=== PATIENT | female | born 1970 | race Caucasian/White ===

== ENCOUNTER → 2021-02-17 | Emergency (ER) | payer OTHER ==
[~2021-02-17] VITALS: Ht 167.6 cm; Wt 60.3 kg
[~2021-02-17] MED LIST: CLONAZEPAM0.5 MG; PAXIL20 MG
== END | disposition home or self-care (01) ==
LOC: ER 19:59
DX: R10.2 Pelvic and perineal pain (principal)

== ENCOUNTER 2022-02-02 15:20 | Emergency (ER) | payer OTHER ==
[~2022-02-02] VITALS: Ht 167.6 cm; Wt 67.6 kg
[2022-02-02] MEDS ORDERED: LEXAPRO5 MG (15:47)
[2022-02-02] MEDS ORDERED: RISPERDAL1 MG (15:48)
== END 2022-02-02 19:01 | disposition home or self-care (01) ==
LOC: ER 15:20
DX: H81.10 Benign paroxysmal vertigo, unspecified ear (principal)

== ENCOUNTER 2023-01-27 09:23 | Emergency (ER) | payer OTHER ==
[~2023-01-27] VITALS: Ht 167.6 cm; Wt 67.6 kg
[~2023-01-27 09:23] MED LIST changes: +LEXAPRO5 MG; +RISPERDAL1 MG
[2023-01-27] MEDS ORDERED: ABILIFY20 MG (09:41)
[2023-01-27] MEDS ORDERED: BANOPHEN50 MG PO (09:42)
[2023-01-27] MEDS ORDERED: CYMBALTA60 MG PO (09:42)
[2023-01-27] MEDS ORDERED: RESTORIL30 M1 PO (09:42)
== END 2023-01-27 13:01 | disposition home or self-care (01) ==
LOC: ER 09:23
DX: R07.9 Chest pain, unspecified (principal); F41.8 Other specified anxiety disorders; F20.89 Other schizophrenia; F31.89 Other bipolar disorder

== ENCOUNTER 2023-04-28 09:24 | Emergency (ER) | payer OTHER ==
[~2023-04-28] VITALS: Ht 167.6 cm; Wt 67.6 kg
[~2023-04-28 09:24] MED LIST changes: +ABILIFY20 MG; +BANOPHEN50 MG PO; +CYMBALTA60 MG PO; +RESTORIL30 M1 PO
== END 2023-04-28 12:03 | disposition home or self-care (01) ==
LOC: ER 09:24
DX: M54.50 Low back pain, unspecified (principal); M25.511 Pain in right shoulder; M25.512 Pain in left shoulder

== ENCOUNTER 2023-09-28 09:09 | Emergency (ER) | payer OTHER ==
[~2023-09-28] VITALS: Ht 167.6 cm; Wt 67.6 kg
[2023-09-28] MEDS ORDERED: BANOPHEN50 MG PO (09:21)
== END 2023-09-28 10:58 | disposition home or self-care (01) ==
LOC: ER 09:10
DX: S16.1XXA Strain of muscle, fascia and tendon at neck level, initial encounter (principal); X58.XXXA Exposure to other specified factors, initial encounter; Y93.9 Activity, unspecified; Y92.9 Unspecified place or not applicable; Y99.9 Unspecified external cause status; F32.A Depression, unspecified

== ENCOUNTER 2023-10-19 07:04 | Emergency (ER) | payer OTHER ==
[~2023-10-19] VITALS: Ht 167.6 cm; Wt 63.5 kg
[2023-10-19] MEDS ORDERED: ORPHENADRINE CITRATE 30 MG/ML AMPUL IM ONE (09:15)
[2023-10-19] MEDS ORDERED: KETOROLAC TROMETHAMINE 60 MG VIAL IM ONE (09:15)
== END 2023-10-19 11:15 | disposition home or self-care (01) ==
LOC: ER 07:04
DX: M54.50 Low back pain, unspecified (principal); M51.36 Other intervertebral disc degeneration, lumbar region

== ENCOUNTER 2023-11-20 13:35 | Emergency (ER) | payer OTHER ==
[~2023-11-20] VITALS: Ht 167.6 cm; Wt 67.6 kg
[2023-11-20] MEDS ORDERED: ORPHENADRINE CITRATE 30 MG/ML AMPUL IM STA (16:30)
[2023-11-20] MEDS ORDERED: ADVIL DUAL ACT1 EACH PO (18:26)
== END 2023-11-20 18:36 | disposition home or self-care (01) ==
LOC: ER 13:35
DX: S90.02XA Contusion of left ankle, initial encounter (principal); S30.0XXA Contusion of lower back and pelvis, initial encounter; S70.02XA Contusion of left hip, initial encounter; S40.012A Contusion of left shoulder, initial encounter; W18.30XA Fall on same level, unspecified, initial encounter; Y93.9 Activity, unspecified; Y92.89 Other specified places as the place of occurrence of the external cause; Y99.9 Unspecified external cause status

== ENCOUNTER 2024-03-23 07:31 | Emergency (ER) | payer OTHER ==
[~2024-03-23] VITALS: Ht 167.6 cm; Wt 67.6 kg
[~2024-03-23 07:31] MED LIST changes: +ADVIL DUAL ACT1 EACH PO
[2024-03-23] MEDS ORDERED: AMOXICILLIN500 M1 PO (09:40)
== END 2024-03-23 09:53 | disposition home or self-care (01) ==
LOC: ER 07:32
DX: J32.9 Chronic sinusitis, unspecified (principal)

== ENCOUNTER 2024-04-05 07:55 | Emergency (ER) | payer OTHER ==
[~2024-04-05] VITALS: Ht 167.6 cm; Wt 67.6 kg
[~2024-04-05 07:55] MED LIST changes: +AMOXICILLIN500 M1 PO
[2024-04-05] MEDS ORDERED: TRAMADOL HCL 50 MG TABLET PO ONE (09:15)
== END 2024-04-05 09:57 | disposition home or self-care (01) ==
LOC: ER 07:56
DX: M25.512 Pain in left shoulder (principal); M50.322 Other cervical disc degeneration at C5-C6 level

== ENCOUNTER 2024-06-13 09:13 | Emergency (ER) | payer OTHER ==
[~2024-06-13] VITALS: Ht 167.6 cm; Wt 65.8 kg
[2024-06-13] MEDS ORDERED: HYOSCYAMINE SULFATE 0.125 MG TAB.SUBL SL ONE (10:00)
[2024-06-13] MEDS ORDERED: ACETAMINOPHEN 500 MG GEL..CAP PO ONE (10:00)
[2024-06-13 10:42] LABS: PH,URINE 7.5 (5.0-8.0); URINE APPEARANCE Clear; URINE BILIRRUBIN Negative (NEGATIVE); URINE BLOOD Negative; URINE COLOR Yellow; URINE GLUCOSE Negative (NEGATIVE); URINE KETONE Negative (NEGATIVE); URINE LEUKOCYTE Negative; URINE NITRATE Negative; URINE PROTEIN Negative (NEGATIVE)
[2024-06-13 10:45] LABS: URINE BACTERIA 88.1 uL (0.0-1933); URINE EPITHELIAL CELLS 6.4 uL (0.0-38.8); URINE RBC 7.4 uL (0.0-20.8); URINE WBC 5.2 uL (0.0-23.2)
[2024-06-13 10:49] LABS: URINE CAST 0.15 uL (0.0-1.40)
[2024-06-13 10:55] LABS: HEMATOCRIT 39.4 % (36.0-45.00); HEMOGLOBIN 13.7 g/dL (12.0-15.00); MEAN CELL VOLUME 86.8 fL (80.00-100.00); MEAN CORPUSCULAR HEMOGLOBIN 30.2 pg (27.00-32.0); MEAN CORPUSCULAR HGB CONC 34.8 g/dl (32.0-36.0); PLATELET COUNT 208 K/uL (150-450); RED BLOOD COUNT 4.54 M/uL (4.00-6.00); RED CELL DISTRIBUTION WIDTH 13.5 % (11.5-14.5)
[2024-06-13 11:14] LABS: CALCIUM 9.9 mg/dL (8.5-10.1); CREATININE SERUM 0.85 mg/dL (0.55-1.02); GFR 69.96; POTASSIUM 3.94 mEq/L (3.5-5.1)
== END 2024-06-13 12:41 | disposition home or self-care (01) ==
LOC: ER 09:14
PROVIDERS: Emergency Medicine
DX: K52.9 Noninfective gastroenteritis and colitis, unspecified (principal); R10.9 Unspecified abdominal pain

== ENCOUNTER 2024-08-26 07:56 | Emergency (ER) | payer OTHER ==
[~2024-08-26] VITALS: Ht 167.6 cm; Wt 67.6 kg
[2024-08-26 10:07] VITALS: BP 130/80; O2SAT 100
== END 2024-08-26 10:08 | disposition home or self-care (01) ==
LOC: ER 07:59
DX: L73.8 Other specified follicular disorders (principal)

== ENCOUNTER 2024-09-05 08:29 | Emergency (ER) | payer OTHER ==
[~2024-09-05] VITALS: Ht 152.4 cm; Wt 79.4 kg
[2024-09-05] MEDS ORDERED: DIPHENHYDRAMINE HCL 50 MG CAPSULE PO ONE (09:45)
[2024-09-05] MEDS ORDERED: DIPHENHYDRAMINE HCL 12.5 MG/5 ML BLIST.PACK PO ONE (09:46)
[2024-09-05 10:17] LABS: HEMATOCRIT 39.9 % (36.0-45.00); HEMOGLOBIN 13.7 g/dL (12.0-15.00); MEAN CELL VOLUME 87.5 fL (80.00-100.00); MEAN CORPUSCULAR HEMOGLOBIN 30.2 pg (27.00-32.0); MEAN CORPUSCULAR HGB CONC 34.5 g/dl (32.0-36.0); PLATELET COUNT 257 K/uL (150-450); RED BLOOD COUNT 4.56 M/uL (4.00-6.00); RED CELL DISTRIBUTION WIDTH 13.7 % (11.5-14.5)
== END 2024-09-05 11:57 | disposition home or self-care (01) ==
LOC: ER 08:32
PROVIDERS: General Practice
DX: B35.9 Dermatophytosis, unspecified (principal)